=== PATIENT | male | born 1950 | race Caucasian/White ===

== ENCOUNTER 2020-07-05 10:14 | Emergency (ER) | payer MEDICAID, SELFPAY ==
[~2020-07-05] VITALS: Ht 172.7 cm; Wt 79.4 kg
[~2020-07-05 10:14] MED LIST: FERR325E14 PO; FURO-572 PO; LEVO750T51 PO; MIRABULK PO; SPIR50TA PO
[2020-07-05 10:19] VITALS: BP 122/62
--- NOTE | 2020-07-05 10:50 | NUR ---
PT SEEN AND EVALUATED BY ARPIT CASTILLO, NO NURSING CARE RENDERED AT THIS TIME
[2020-07-05 11:06] VITALS: BP 122/62
--- NOTE | 2020-07-05 11:07 | NUR ---
Patient discharged with v/s stable. Written and verbal after care instructions given and explained. Patient verbalized understanding. Ambulatory with steady gait. All questions addressed prior to discharge. Advised to follow up with PMD.
== END 2020-07-05 11:07 | disposition home or self-care (01) ==
LOC: MED 10:14
DX: K70.30 Alcoholic cirrhosis of liver without ascites (principal); K21.9 Gastro-esophageal reflux disease without esophagitis; I10 Essential (primary) hypertension; Z79.899 Other long term (current) drug therapy
CPT/HCPCS: 99281